=== PATIENT | male | born 1930 | race Caucasian/White ===

== ENCOUNTER 2018-01-01 16:04 | Emergency (ER) | payer MEDICARE, OTHER ==
[2018-01-01 17:23] LABS: Bilirubin Small (Negative); Blood, Urine Negative (Negative); Clarity Clear (Clear); Glucose, Urine (Dipstick) Negative (Negative); Leukocyte Negative (Negative); Nitrite Negative (Negative); Protein, Urine (Dipstick) Trace mg/dL (Neg-Trace); Specific Gravity, Urine 1.025 (1.005-1.030); Urobilinogen 0.2 mg/dL (0.2-1.0)
[2018-01-01 17:56] LABS: #Eosinphils 0.1 thou/uL (0.0-0.7); #Lymphocytes 1.4 thou/uL (1.20-3.40); #Monocytes 0.7 thou/uL (0.11-0.59); #Neutrophils 6.1 thou/uL (1.40-6.50); %Basophils 0.5 % (0.0-1.0); %Eosinophils 0.6 % (0.0-10.0); %Lymphocytes 17.2 % (21.0-51.0); %Monocytes 8.7 % (0.0-10.0); Hemoglobin 15.7 g/dL (14.0-18.0); Mean Corpuscular Hemoglobin 29.7 pg (27.0-31.0); Mean Corpuscular Volume 90.1 fL (78.0-98.0); Mean Platelet Volume 7.2 fL (7.4-10.4); Platelet Count 219 thou/uL (130-400); RBC Distribution Width 10.9 % (11.5-14.5); Red Blood Cell (RBC) Count 5.27 mill/uL (4.70-6.10); White Blood Cell (WBC) Count 8.4 thou/uL (4.8-10.8)
[2018-01-01 18:00] LABS: ALT (SGPT) 16 U/L (8-55); AST (SGOT) 18 U/L (5-34); Albumin 4.5 g/dL (3.4-4.8); Alkaline Phosphatase 65 U/L (40-150); Anion Gap 19 mmol/L (10-20); BUN (Urea Nitrogen) 16 mg/dL (8.4-25.7); Bilirubin, Total 0.8 mg/dL (0.2-1.2); Calc. Creatinine Clearance 0 mL/min (70-130); Calcium 9.9 mg/dL (7.8-10.44); Carbon Dioxide 22 mmol/L (23-31); Chloride 102 mmol/L (98-107); Estimated GFR-MDRD 78; Globulin 3.2 g/dL (2.4-3.5); Glucose 107 mg/dL (83-110); Protein, Total 7.7 g/dL (5.8-8.1); Sodium 139 mmol/L (136-145)
--- NOTE | 2018-01-01 18:05 | RAD ---
TWO VIEWS CHEST: 01/01/18 HISTORY: Dizziness. PA and lateral views of the chest is obtained. There is some air trapping and changes of COPD. No evidence of effusions seen. Some minimal areas of atelectasis seen in the lung bases. This may also represent bibasilar areas of pneumonia. IMPRESSION: Patchy areas of density in both lung bases compatible with atelectasis or small areas of patchy pneum onia. No other acute abnormalities seen. POS: [facility]
--- NOTE | 2018-01-01 18:29 | CT ---
CT BRAIN: 01/01/18 HISTORY: Lightheadedness. CT brain is obtained. 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 The brain demonstrates diffuse cortical atrophy and deep white matter ischemic changes. 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 No evidence of acute intracranial masses, hemorrhages, or strokes seen. There is extensive opacification of the right mastoid air cells. Right mastoid sinus disease cannot b e excluded. A small amount of fluid seen in the right middle ear. ENT consultation recommended. IMPRESSION: 1. Previous old surgical changes. 2. Cortical atrophy and deep white matter ischemic changes. 3. No evidence of acute intracranial pathology seen. 4. Right mastoid and partial middle ear opacification. POS: [facility]
== END 2018-01-01 20:07 | disposition short-term general hospital (02) ==
LOC: MADERS 16:04
DX: H61.21 Impacted cerumen, right ear (principal); H66.91 Otitis media, unspecified, right ear; R79.89 Other specified abnormal findings of blood chemistry; I25.2 Old myocardial infarction; E78.5 Hyperlipidemia, unspecified; Z87.891 Personal history of nicotine dependence; Z79.899 Other long term (current) drug therapy; Z79.82 Long term (current) use of aspirin
CPT/HCPCS: 70450; 71046; 80053; 81003; 84484; 85025; 93005